=== PATIENT | female | born 1980 | race Caucasian/White ===

== ENCOUNTER 2020-03-19 13:18 | Emergency (ER) | payer BC, OTHER ==
[~2020-03-19] VITALS: Ht 170.2 cm; Wt 86.4 kg
[2020-03-19 13:35] VITALS: BP 111/56; TEMP 98.2
[2020-03-19 15:37] VITALS: PULSE 85
== END 2020-03-19 15:37 | disposition home or self-care (01) ==
LOC: COL.ER 13:18
DX: S93.401A Sprain of unspecified ligament of right ankle, initial encounter (principal); W10.8XXA Fall (on) (from) other stairs and steps, initial encounter; Y92.009 Unspecified place in unspecified non-institutional (private) residence as the place of occurrence of the external cause